=== PATIENT | male | born 1955 | race Caucasian/White ===

== ENCOUNTER 2024-10-07 10:30 | Outpatient (OUT) | payer MEDICARE, SELFPAY ==
--- NOTE | 2024-10-07 10:40 | XR_ITS ---
The [address] [address] Patient Name: KAYLIE ARRIOLA MRN: [id number] date: 1955 Sex: M Assigned Patient Location: RAD Current Patient Location: RAD Accession/Order Number: [id number] Exam Date: 10/07/2024 10:45 Report Date: 10/07/2024 12:57 At the request of: FRANKI LECHUGA Procedure: XR shoulder JESSICA min 2V EXAMINATION: XR shoulder JESSICA min 2V HISTORY: Impingement Syndrome Of Bilateral Shoulder COMPARISON: No relevant comparison available. FINDINGS: RIGHT FINDINGS: BONES: No acute fracture or dislocation. Mild acromioclavicular joint osteoarthritis with 2 mm of subacromial spurring SOFT TISSUES: Negative. No visible soft tissue swelling. OTHER: Negative. LEFT FINDINGS: BONES: No acute fracture or dislocation. Minimal acromioclavicular joint osteoarthropathy SOFT TISSUES: Negative. No visible soft tissue swelling. OTHER: Negative. XR/XR shoulder JESSICA min 2V IMPRESSION: RIGHT CONCLUSION: Mild osteoarthritis LEFT CONCLUSION: Minimal osteoarthritis Electronically authenticated by: CHAVEZ CALLAHAN Date: 10/07/2024 12:57
== END 2024-10-07 10:31 | disposition home or self-care (01) ==
LOC: RAD 10:35
PROVIDERS: PCP Internal Medicine; Visit Provider Internal Medicine
DX: M75.41 Impingement syndrome of right shoulder (principal); M75.42 Impingement syndrome of left shoulder; M19.012 Primary osteoarthritis, left shoulder; M19.011 Primary osteoarthritis, right shoulder
CPT/HCPCS: 73030